=== PATIENT | female | born 1965 | race Caucasian/White ===

== ENCOUNTER 2018-02-03 18:30 | Observation (INO) ==
--- NOTE | 2018-02-03 19:30 | ED ---
HPI General Chief Complaint: Chest Pain Stated Complaint: chest pain Time Seen by Provider: 02/03/18 18:47 Source: patient Mode of arrival: ambulatory Limitations: no limitations History of Present Illness HPI narrative: Patient is a 52-year-old female presenting to the emerge department for evaluation of chest pain. Patient states started approximately 5 :30 PM this afternoon. Symptoms started with floaters in her right eye, she states that is how she knows her blood pressure is elevated. Chest pain is localized to left anterior chest wall with radiation to the left arm and left neck and jaw. She states the pain is intermittent, worse when laying flat. She reports dizziness, fatigue, mild nausea but denies any shortness of breath. Symptom onset was sudden, symptoms are moderate, patient reports that she has a history of hypertension, she is been off of lisinopril and HCTZ for 2 months due to lack of insurance benefits. She reports a family history significant for early heart disease, she states her father of his second heart attack in his 50s. Patient currently reports her pain is 7 out of 10, tight, also feels as if someone kicked her in the chest. She reports that she does have a history of anxiety and rheumatoid arthritis as well. MD complaint: Reports chest pain STEMI Alert: No Onset (ago): hour(s) (2) Duration: intermittent Onset: during rest Pain location: Reports left chest Severity: moderate Severity scale (1-10): 7 Quality: Reports aching and heaviness Pain radiation: Reports LUE, neck and jaw/teeth Relieving factors: nothing Exacerbating factors: supine Associated symptoms: Reports nausea Treatments prior to arrival chest pain: Reports none Related Data On Oral Contraceptives: No Home Medications Medication Instructions Recorded Confirmed lisinopril-hydrochlorothiazide 1 tab PO DAILY 02/03/18 Allergies Allergy/AdvReac Type Severity Reaction Status Date / Time No Known Allergies Allergy Verified 02/03/18 18:35 Review of Systems ROS: all other systems reviewed are negative [facility] Medical History Medical History Anxiety (Acute) Hypertension (Acute) Rheumatoid arthritis (Acute) Surgical History Surgical History H/O shoulder surgery (Acute) Social History Social History Substance History: No History of Abuse Second Hand Smoke Exposure: Yes Smoking Status: Current every day smoker Tobacco Type: Cigarettes How Often Do You Have a Drink Containing Alcohol: 2 to 4 times a month Recent Travel in [facility] within the Last 8 Weeks: No Recent Out of Country Travel within the Last 8 Weeks: No Immunization History Tetanus Immunization: >5 Years Exam Narrative Exam Narrative: GENERAL: Well-developed, well-nourished, alert female. Appears uncomfortable, in no acute distress. SKIN: Focused skin assessment warm/dry. HEAD: Atraumatic. Normocephalic. EYES: Pupils equal and round. No scleral icterus. No injection or drainage. ENT: No nasal bleeding or discharge. Mucous membranes pink and moist. NECK: Trachea midline. No JVD. CARDIOVASCULAR: Regular rate and rhythm. No murmur appreciated. RESPIRATORY: No accessory muscle use. Clear to auscultation. Breath sounds equal bilaterally. GASTROINTESTINAL: Abdomen soft, non-tender, nondistended. Hepatic and splenic margins not palpable. MUSCULOSKELETAL: No obvious deformities. No clubbing. No cyanosis. No edema. NEUROLOGICAL: Awake and alert. No obvious cranial nerve deficits. Motor grossly within normal limits. Normal speech. PSYCHIATRIC: Appropriate mood and affect; insight and judgment normal. Course Initial Documented Vital Signs Temperature 98.7 F 02/03/18 18:33 Pulse Rate 91 H 02/03/18 18:33 Respiratory Rate 20 02/03/18 18:33 Blood Pressure 207/114 H 02/03/18 18:33 Pulse Oximetry 99 02/03/18 18:33 Last Documented Vital Signs Temperature 98.7 F 02/03/18 18:33 Pulse Rate 67 02/03/18 19:54 Respiratory Rate 18 02/03/18 19:54 Blood Pressure 181/111 H 02/03/18 19:54 Pulse Oximetry 97 02/03/18 19:54 Medical Decision Making [facility] Narrative Medical decision making narrative: Patient is a 52-year-old female presenting for evaluation of chest pain that started abruptly at 530 is afternoon. Patient has a strong family history, she has had no previous cardiac workup. Patient is hypertensive on arrival. She will be given Nitropaste to her chest wall as well as 324 mg of aspirin. Labs and imaging ordered and pending. Initial cardiac enzymes are unremarkable. BP remained elevated after nitropaste, pt was given morphine and lisinopril. Remaining labs reviewed with no acute findings. Pt reported pain has improved after nitro and morphine. CXR with no acute disaease. Pt will be admitted to the [facility] for further workup which in light of significant family history and no previous cardiac work-up is warranted. Pt is agreeable, orders placed. Medical Screen Exam Complete: Yes Emergency Medical Condition: Yes Differential Diagnosis Differential Diagnosis: Metabolic abnormality versus anxiety versus other Lab Data Lab results reviewed: Yes I reviewed the patient's lab results. Result diagrams: 02/03/18 19:25 02/03/18 19:25 Lab Results 02/03/18 02/03/18 02/03/18 Range/Units 19:25 19:25 19:25 WBC 7.8 (4.0-11.0) th/mm3 RBC 4.73 (4.00-5.30) mil/mm3 Hgb 15.2 (11.6-15.3) gm/dL Hct 44.0 (35.0-46.0) % MCV 93.1 (80.0-100.0) fL MCH 32.2 (27.0-34.0) pg MCHC 34.6 (32.0-36.0) % RDW 12.5 (11.6-17.2) % Plt Count 241 (150-450) th/mm3 MPV 7.9 (7.0-11.0) fL Neut % (Auto) 58.7 (16.0-70.0) % Lymph % (Auto) 33.2 (9.0-44.0) % [place] % (Auto) 6.2 (0.0-8.0) % Eos % (Auto) 1.4 (0.0-4.0) % Baso % (Auto) 0.5 (0.0-2.0) % Neut # (Auto) 4.6 (1.8-7.7) th/mm3 Lymph # (Auto) 2.6 (1.0-4.8) th/mm3 [place] # (Auto) 0.5 (0.0-0.9) th/mm3 Eos # (Auto) 0.1 (0.0-0.4) th/mm3 Baso # (Auto) 0.0 (0.0-0.2) th/mm3 WBC Differential . Differential Comment Auto diff final PT 10.7 (9.8-11.6) sec INR 1.1 Ratio APTT 27.1 (23.4-31.7) sec Sodium 141 (136-145) meq/L Potassium 3.7 (3.5-5.1) meq/L Chloride 106 (98-107) meq/L Carbon Dioxide 26.3 (21.0-32.0) meq/L Anion Gap 9 (5-15) meq/L BUN 11 (7-18) mg/dL Creatinine 0.84 (0.50-1.00) mg/dL Estimated GFR 71 L (>89) mL/min Random Glucose 82 (74-106) mg/dL Calcium 8.7 (8.5-10.1) mg/dL Magnesium 2.0 (1.5-2.5) mg/dL Total Bilirubin 0.9 (0.2-1.0) mg/dL AST 18 (15-37) U/L ALT 15 (10-53) U/L Alkaline Phosphatase 43 L (45-117) U/L Total Creatine Kinase 107 (26-192) U/L CK-MB (CK-2) 1.2 (0.5-3.6) ng/mL Troponin I Less than 0.02 L (0.02-0.05) ng/mL Total Protein 7.2 (6.4-8.2) g/dL Albumin 4.0 (3.4-5.0) g/dL Lipase 122 (73-393) U/L Imaging Data Radiologist's impression: Chest X-Ray 02/03/18 18:46 CONCLUSION: 1. No acute cardiopulmonary disease. Discharge Plan Discharge Disposition Patient Disposition: ED Admit(ED Internal Use Only) Discharge Condition Condition: Stable Discharge Order Discharge Orders: ED Use Only Admit Order (Routine); Ordered 02/03/18 Ordered By: Cassie Saab Discharge Details Diagnosis: Atypical chest pain Physicians Team ED Provider: Chris Mcgrath ED Midlevel Provider: Cassie Saab Primary Care Provider: Primary Care Claritza Guzmán Attending Provider: Nicki Wilson ED Status: Admitted Observation Patient
[2018-02-03 19:31] LABS: Baso % (Auto) 0.5 % (0.0-2.0); Eos # (Auto) 0.1 th/mm3 (0.0-0.4); Eos % (Auto) 1.4 % (0.0-4.0); Hemoglobin 15.2 gm/dL (11.6-15.3); Lymph # (Auto) 2.6 th/mm3 (1.0-4.8); Lymph % (Auto) 33.2 % (9.0-44.0); Mean Corpuscular HGB Conc 34.6 % (32.0-36.0); Mean Corpuscular Hemoglobin 32.2 pg (27.0-34.0); Mean Corpuscular Volume 93.1 fL (80.0-100.0); Mean Platelet Volume 7.9 fL (7.0-11.0); Mono # (Auto) 0.5 th/mm3 (0.0-0.9); Mono % (Auto) 6.2 % (0.0-8.0); Neut # (Auto) 4.6 th/mm3 (1.8-7.7); Neut % (Auto) 58.7 % (16.0-70.0); Platelet Count 241 th/mm3 (150-450); Red Blood Count 4.73 mil/mm3 (4.00-5.30); Red Cell Distribution Width 12.5 % (11.6-17.2); White Blood Count 7.8 th/mm3 (4.0-11.0)
--- NOTE | 2018-02-03 19:31 | XR ---
EXAM DATE: 02/03/2018 7:27 PM EST AGE/SEX: 52 years / Female INDICATIONS: Mid chest pain. CLINICAL DATA: This is the patient's initial encounter. Patient reports that signs and symptoms have been present for 3 days and indicates a pain score of 7/10. MEDICAL/SURGICAL HISTORY: None. None. COMPARISON: No prior exams available for comparison. FINDINGS: A single AP view of the chest demonstrates the lungs to be symmetrically aerated without evidence of mass, infiltrate or effusion. The cardiomediastinal contours are unremarkable. Osseous structures a re intact. CONCLUSION: 1. No acute cardiopulmonary disease. Electronically signed by: Catalino Monroy MD Board Certified Radiologist 02/03/2018 7:30 PM ZIG[facility] T
[2018-02-03 19:52] LABS: Activated Partial Thrombo Time 27.1 sec (23.4-31.7); INR 1.1 Ratio; Prothrombin Time 10.7 sec (9.8-11.6)
[2018-02-03 19:58] LABS: Anion Gap 9 meq/L (5-15); Aspartate Aminotransferase 18 U/L (15-37); Blood Urea Nitrogen 11 mg/dL (7-18); Calcium 8.7 mg/dL (8.5-10.1); Carbon Dioxide 26.3 meq/L (21.0-32.0); Chloride 106 meq/L (98-107); Glomerular Filtration Rate 71 mL/min (>89); Glucose,Random 82 mg/dL (74-106); Lipase 122 U/L (73-393); Potassium 3.7 meq/L (3.5-5.1); Sodium 141 meq/L (136-145)
[2018-02-03 20:03] LABS: Alanine Aminotransferase 15 U/L (10-53); Alkaline Phosphatase 43 U/L (45-117); Creatine Kinase 107 U/L (26-192); Total Protein 7.2 g/dL (6.4-8.2)
[2018-02-03] MEDS ORDERED: Lisinopril 20 MG Tablet PO ONE (20:07)
[2018-02-03] MEDS ORDERED: Morphine Sulfate Inj 2 MG/ML Vial IV.PUSH ONE ×2 (20:07→21:17)
[2018-02-03 20:16] LABS: Creatine Kinase MB 1.2 ng/mL (0.5-3.6)
[2018-02-03] MEDS ORDERED: Morphine Inj 4 MG/ML Vial IV.PUSH PRN (21:18)
[2018-02-03] MEDS ORDERED: Acetaminophen 500 MG Tablet PO PRN (21:18)
[2018-02-03] MEDS ORDERED: ALPRAZolam 0.25 MG Tablet PO PRN (21:18)
[2018-02-03 22:20] LABS: Bilirubin,Urine Negative (Negative); Clarity,Urine Hazy (Clear); Color,Urine Yellow (Yellw/Straw); Glucose,Urine (UA) Negative (Negative); Hyaline Casts,Urine 1 /lpf (0-3); Leukocyte Esterase,Urine Negative (Negative); Mucus,Urine Many /lpf (Occasional); Nitrite,Urine Negative (Negative); Specific Gravity,Urine 1.016 (1.002-1.035); Squamous Epithelial Cell,Urine 1 /hpf (0-5)
[2018-02-03 22:28] LABS: Amphetamine Screen,Urine Neg (Neg); Barbiturate Screen,Urine Neg (Neg); Cannabinoid Screen,Urine Neg (Neg); Cocaine Screen,Urine Neg (Neg); Opiate Screen,Urine Pos (Neg)
[2018-02-03 23:01] LABS: Creatine Kinase 84 U/L (26-192)
[2018-02-04] MEDS ORDERED: Enoxaparin Inj 40 MG/0.4 ML Syringe SQ ONE (01:15)
[2018-02-04 02:13] LABS: Creatine Kinase 83 U/L (26-192)
--- NOTE | 2018-02-04 08:48 | P.HPCA ---
History of Present Illness Primary Care Physician: No Primary Care Physician Chief Complaint: Chest pain History of Present Illness: 52-year-old female with history of rheumatoid arthritis, hypertension (not current on medication), and current smoker presents to the emergency room for further evaluation of nonexertional chest pain. Onset 5:30 PM. Location left anterior chest. Characterized as stabbing. Moderate in severity. Radiation to left-sided neck and left arm. Duration intermittent waves generally lasting 5 minutes returning within 30 minutes before returning again. These episodes have occurred all evening. Associated symptoms initially included nausea. Denied vomiting, dyspnea, pain on inspiration, or diaphoresis. No precipitating factors. However endorses current situational stress. Reports medications given in ER eased discomfort and frequency through evening. No recent illness, fever, chills,, or injury. Denies similar pain in the past. 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 Endorses extreme amount of stress from unplanned relocation in November , resulting in financial difficultly. Frequently tearful during interview. Past cardiac testing None Social history Known hypertension, unfortunately has been out of her medications for 2 months. Previously taking lisinopril/hydrochlorothiazide. No known diabetes or hyperlipidemia. Current 1/2 pack day smoker, did not start using tobacco until age 47. . Endorses active lifestyle. Primary care provider 2-year-old grandson. Family history Positive early onset cardiovascular disease. Father first DE age 47, age 52 [place]. - Diagnosis (1) Atypical chest pain (2) Hypertension (3) Tobacco use Review of Systems All other systems reviewed negative except as stated in HPI [facility] - History History Provided By: Patient - Medical History Medical History: Medical History (Last Reviewed 02/04/18 @ 15:21 by IVONNE Holbrook) Anxiety Hypertension Rheumatoid arthritis - Surgical History Surgical History: Surgical History (Last Updated 02/04/18 @ 08:43 by IVONNE Holbrook) H/O cervical spine surgery H/O shoulder surgery Hx of tonsillectomy - Tobacco History Second Hand Smoke Exposure: Yes Tobacco Use In Past 30 Days: Yes Smoking Status: Current every day smoker (began smoking age 47) Tobacco Type: Cigarettes Packs Per Day: 0.5 - Alcohol History How Often Do You Have a Drink Containing Alcohol: 2 to 4 times a month - Substance Use History Substance History: No History of Abuse - Travel History Recent Travel in the [place] Within the Last 8 Weeks: No Recent Travel Out of the Country Within the Last 8 Weeks: No - Immunization History Tetanus Immunization: >5 Years Medications and Allergies Active Medications: Active Medications Acetaminophen (Tylenol) 500 mg PO Q4H PRN PRN Reason: HEADACHE Alprazolam (Xanax) 0.25 mg PO Q8H PRN PRN Reason: ANXIETY Lisinopril (Prinivil) 10 mg PO DAILY [facility] Morphine Sulfate (Morphine Inj) 2 mg IV.PUSH Q4H PRN PRN Reason: PAIN SCALE 8 TO 10 Nitroglycerin (Nitro-Bid 2% Oint) 1 inch TOPICAL Q6HR LAZARO Last Admin: 02/04/18 05:16 Dose: 1 inch Ondansetron HCl (Zofran Inj) 4 mg IV.PUSH Q6H PRN PRN Reason: NAUSEA Sodium Chloride (Ns Flush) 2 ml IV.FLUSH UNSCH PRN PRN Reason: FLUSH AFTER USING IV ACCESS Sodium Chloride (Ns Flush) 2 ml IV.FLUSH BID LAZARO Sodium Chloride (Ns Flush) 2 ml IV.FLUSH PRN PRN PRN Reason: FLUSH AFTER USING IV ACCESS Allergies Allergy/AdvReac Type Severity Reaction Status Date / Time No Known Allergies Allergy Verified 02/03/18 18:35 Exam Vital signs: Vital Signs 02/03/18 18:33 02/03/18 18:58 02/03/18 19:00 Temperature 98.7 F Pulse Rate 91 H 74 65 Respiratory Rate 20 18 Blood Pressure 207/114 H 202/105 H 177/104 H Pulse Oximetry 99 99 98 02/03/18 19:51 02/03/18 19:54 02/03/18 21:30 Temperature Pulse Rate 65 67 67 Respiratory Rate 18 18 Blood Pressure 181/111 H 159/97 H Pulse Oximetry 97 97 99 02/03/18 23:43 02/04/18 00:00 02/04/18 04:00 Temperature 97.8 F Pulse Rate 60 58 L Respiratory Rate 17 16 Blood Pressure 136/79 Pulse Oximetry 95 02/04/18 05:12 02/04/18 07:42 Temperature 97.5 F L 97.8 F Pulse Rate 60 68 Respiratory Rate 17 16 Blood Pressure 119/64 115/72 Pulse Oximetry 94 L 95 Intake & Output 02/03/18 02/04/18 02/04/18 18:59 06:59 18:59 Weight 56.699 kg Other: # Voids 2 Narrative: GENERAL: Alert WN, WD, NAD, pleasant, female HEAD: NC, AT EYES: Sclera clear, conjunctiva injected ENT: Mucous membranes pink and moist NECK: Supple, no masses, trachea midline CV: Regular bradycardic rhythm, soft systolic murmur. Left anterior chest discomfort reproduced with palpation. RESP: Clear lungs throughout bilateral, no crackles, wheeze, rhonchi, symmetrical chest rise, nonlabored, able to speak in full sentences ABD: Soft, NT, ND, no masses, positive bowel tones BACK: No scoliosis EXT: Pulses +2x4, no dependent edema MS: Normal tone x4 extremities, nontender, no obvious deformities, full range of motion NEURO: Motor strength 5/5, gait WNL PSYCH: A+O x3, pleasant affect, appropriate speech, depressed mood, tearful, appropriate insight and judgment SKIN: Normal turgor, normal texture, no lesions, no rashes, brisk cap refill, even hair distribution Results 02/03/18 19:25 02/03/18 19:25 Cardiac Enzymes 02/03/18 02/03/18 02/04/18 Range/Units 19:25 21:55 01:30 AST 18 (15-37) U/L CK-MB (CK-2) 1.2 (0.5-3.6) ng/mL Troponin I Less than 0.02 L Less than 0.02 L Less than 0.02 L (0.02-0.05) ng/mL Coagulation 02/03/18 Range/Units 19:25 PT 10.7 (9.8-11.6) sec APTT 27.1 (23.4-31.7) sec CBC 02/03/18 Range/Units 19:25 WBC 7.8 (4.0-11.0) th/mm3 RBC 4.73 (4.00-5.30) mil/mm3 Hgb 15.2 (11.6-15.3) gm/dL Hct 44.0 (35.0-46.0) % Plt Count 241 (150-450) th/mm3 Neut # (Auto) 4.6 (1.8-7.7) th/mm3 Lymph # (Auto) 2.6 (1.0-4.8) th/mm3 [place] # (Auto) 0.5 (0.0-0.9) th/mm3 Eos # (Auto) 0.1 (0.0-0.4) th/mm3 Baso # (Auto) 0.0 (0.0-0.2) th/mm3 Comprehensive Metabolic Panel 02/03/18 Range/Units 19:25 Sodium 141 (136-145) meq/L Potassium 3.7 (3.5-5.1) meq/L Chloride 106 (98-107) meq/L Carbon Dioxide 26.3 (21.0-32.0) meq/L BUN 11 (7-18) mg/dL Creatinine 0.84 (0.50-1.00) mg/dL Calcium 8.7 (8.5-10.1) mg/dL AST 18 (15-37) U/L ALT 15 (10-53) U/L Alkaline Phosphatase 43 L (45-117) U/L Total Protein 7.2 (6.4-8.2) g/dL Albumin 4.0 (3.4-5.0) g/dL Intake and Output 02/03/18 02/04/18 02/04/18 22:59 06:59 14:59 Other: # Voids 2 Weight 56.699 kg - Imaging and Cardiology Imaging: Impressions Chest X-Ray 02/03/18 18:46 CONCLUSION: 1. No acute cardiopulmonary disease. EKG interpretations - Dysrhythmias Sinus rhythms and dysrhythmias: sinus bradycardia (< 50 bpm) (Normal axis, no ST -T segment change) Caprini VTE Risk Assessment Caprini VTE Risk Assessment: No/Low Risk (score <= 1) Caprini Risk Assessment Model: Point Value = 1 Point Value = 2 Point Value = 3 Point Value = 5 Age 41-60 Minor surgery BMI > 25 kg/m2 Swollen legs Varicose veins or History of unexplained or recurrent spontaneous Oral contraceptives or hormone replacement Sepsis (< 1 month) Serious lung disease, including pneumonia (< 1 month) Abnormal pulmonary function Acute myocardial infarction Congestive heart failure (< 1 month) History of inflammatory bowel disease Medical patient at bed rest Age 61-74 Arthroscopic surgery Major open surgery (> 45 min) Laparoscopic surgery (> 45 min) Malignancy Confined to bed (> 72 hours) Immobilizing plaster cast Central venous access Age >= 75 History of VTE Family history of VTE Factor V Leiden Prothrombin [id number] Lupus anticoagulant Anticardiolipin antibodies Elevated serum homocysteine Heparin-induced thrombocytopenia Other congenital or acquired thrombophilia Stroke (< 1 month) Elective arthroplasty Hip, pelvis, or leg fracture Acute spinal cord injury (< 1 month) Prophylaxis Regimen: Total Risk Factor Score Risk Level Prophylaxis Regimen 0-1 Low Early ambulation 2 Moderate Order ONE of the following: *Sequential Compression Device (SCD) *Heparin 5000 units SQ BID 3-4 Higher Order ONE of the following medications: *Heparin 5000 units SQ TID *Enoxaparin/Lovenox 40 mg SQ daily (WT < 150 kg, CrCl > 30 mL/min) *Enoxaparin/Lovenox 30 mg SQ daily (WT < 150 kg, CrCl > 10-29 mL/min) *Enoxaparin/Lovenox 30 mg SQ BID (WT < 150 kg, CrCl > 30 mL/min) AND/OR *Sequential Compression Device (SCD) 5 or more Highest Order ONE of the following medications: *Heparin 5000 units SQ TID (Preferred with Epidurals) *Enoxaparin/Lovenox 40 mg SQ daily (WT < 150 kg, CrCl > 30 mL/min) *Enoxaparin/Lovenox 30 mg SQ daily (WT < 150 kg, CrCl > 10-29 mL/min) *Enoxaparin/Lovenox 30 mg SQ BID (WT < 150 kg, CrCl > 30 mL/min) AND *Sequential Compression Device (SCD) Assessment and Plan - Assessment (1) Atypical chest pain Code(s): R07.89 - Other chest pain Status: Acute Plan: Admitted to chest pain center. Monitor on telemetry overnight. ACS ruled out with 3 sets of EKGs and cardiac enzymes. Will be seen and evaluated by Dr. Perez. Discussed possible exercise stress test later this further disposition to follow her evaluation by avionics systems technician. (2) Hypertension Code(s): I10 - Essential (primary) hypertension Status: Chronic Plan: Lisinopril 20 mg daily. Continue to monitor. Discussed importance of tobacco cessation and adhering to a low-sodium diet. Will provide prescription refill upon discharge. Names and contact information will be placed in patients discharge packet. (3) Tobacco use Code(s): Z72.0 - Tobacco use Status: Chronic Plan: Strongly encouraged and stressed importance of tobacco cessation. Instructed to quit smoking. H&P: Quality - VTE Deep Vein Thrombosis/Pulmonary Embolism Present on Admission: No (2) Hypertension Qualifiers: Hypertension type: unspecified Qualified Code(s): I10 - Essential (primary) hypertension
[2018-02-04] MEDS ORDERED: Lisinopril 10 MG Tablet PO SCH (09:00)
--- NOTE | 2018-02-04 12:51 | P.PNCA ---
Subjective Interval history: 52-year-old lady admitted to the chest pain center with complaints of chest pain. She was evaluated by the nurse practitioner, presented, and then seen and examined personally. Documentation is recorded by the nurse practitioner is appropriate and accurate. In essence this patient is under a great deal of emotional stress and has had some recurring episodes of very atypical chest pain. Her emotional situation is precipitated by the fact that she gave up her job to come to this area to help take care of her small grandson because her daughter and son-in-law are not coping with caring for the child. Both use marijuana regularly. The daughter works but that has been does not. She stays because she is so concerned about the grandchild but is very frustrated by her children. Her ex- also lives in the same house and is apparently loud and rude. She is ruled out using ACS protocol but will need to be evaluated by a stress test prior to her discharge. She is also not been treating her hypertension and will be instructed in regard to the need of establishing with a physician for ongoing outpatient care. Medications and Allergies Active Medications: Active Medications Acetaminophen (Tylenol) 500 mg PO Q4H PRN PRN Reason: HEADACHE Alprazolam (Xanax) 0.25 mg PO Q8H PRN PRN Reason: ANXIETY Lisinopril (Prinivil) 10 mg PO DAILY [facility] Last Admin: 02/04/18 08:53 Dose: 10 mg Morphine Sulfate (Morphine Inj) 2 mg IV.PUSH Q4H PRN PRN Reason: PAIN SCALE 8 TO 10 Ondansetron HCl (Zofran Inj) 4 mg IV.PUSH Q6H PRN PRN Reason: NAUSEA Sodium Chloride (Ns Flush) 2 ml IV.FLUSH UNSCH PRN PRN Reason: FLUSH AFTER USING IV ACCESS Sodium Chloride (Ns Flush) 2 ml IV.FLUSH BID [facility] Last Admin: 02/04/18 08:53 Dose: 2 ml Sodium Chloride (Ns Flush) 2 ml IV.FLUSH PRN PRN PRN Reason: FLUSH AFTER USING IV ACCESS Allergies Allergy/AdvReac Type Severity Reaction Status Date / Time No Known Allergies Allergy Verified 02/03/18 18:35 Home Medications Medication Instructions Recorded Confirmed Type lisinopril-hydrochlorothiazide 1 tab PO DAILY 02/03/18 History Physical Exam Vital signs: Vital Signs 02/03/18 18:33 02/03/18 18:58 02/03/18 19:00 Temperature 98.7 F Pulse Rate 91 H 74 65 Respiratory Rate 20 18 Blood Pressure 207/114 H 202/105 H 177/104 H Pulse Oximetry 99 99 98 02/03/18 19:51 02/03/18 19:54 02/03/18 21:30 Temperature Pulse Rate 65 67 67 Respiratory Rate 18 18 Blood Pressure 181/111 H 159/97 H Pulse Oximetry 97 97 99 02/03/18 23:43 02/04/18 00:00 02/04/18 04:00 Temperature 97.8 F Pulse Rate 60 58 L Respiratory Rate 17 16 Blood Pressure 136/79 Pulse Oximetry 95 02/04/18 05:12 02/04/18 07:42 02/04/18 08:00 Temperature 97.5 F L 97.8 F Pulse Rate 60 68 56 L Respiratory Rate 17 16 Blood Pressure 119/64 115/72 Pulse Oximetry 94 L 95 95 02/04/18 12:00 Temperature 98.0 F Pulse Rate 67 Respiratory Rate 16 Blood Pressure 127/78 Pulse Oximetry 94 L Intake & Output 02/03/18 02/04/18 02/04/18 18:59 06:59 18:59 Weight 56.699 kg Other: # Voids 2 Narrative: Well-nourished well-developed woman in no acute distress but who became quite tearful explaining the stressful home situation she is in. Skin warm and dry, heavily freckled, several tattoos. HEENT is recorded Neck supple no JVD masses nodes or bruits Chest diminished breath sounds but no rales wheezes or rhonchi Cardiovascular PMI is not displaced there is a regular sinus rhythm no gallops rubs or murmurs Abdomen soft nontender no guarding or rebound Extremities no clubbing cyanosis or edema Results 02/03/18 19:25 02/03/18 19:25 Cardiac Enzymes 02/03/18 02/03/18 02/04/18 Range/Units 19:25 21:55 01:30 AST 18 (15-37) U/L CK-MB (CK-2) 1.2 (0.5-3.6) ng/mL Troponin I Less than 0.02 L Less than 0.02 L Less than 0.02 L (0.02-0.05) ng/mL Coagulation 02/03/18 Range/Units 19:25 PT 10.7 (9.8-11.6) sec APTT 27.1 (23.4-31.7) sec CBC 02/03/18 Range/Units 19:25 WBC 7.8 (4.0-11.0) th/mm3 RBC 4.73 (4.00-5.30) mil/mm3 Hgb 15.2 (11.6-15.3) gm/dL Hct 44.0 (35.0-46.0) % Plt Count 241 (150-450) th/mm3 Neut # (Auto) 4.6 (1.8-7.7) th/mm3 Lymph # (Auto) 2.6 (1.0-4.8) th/mm3 [place] # (Auto) 0.5 (0.0-0.9) th/mm3 Eos # (Auto) 0.1 (0.0-0.4) th/mm3 Baso # (Auto) 0.0 (0.0-0.2) th/mm3 Comprehensive Metabolic Panel 02/03/18 Range/Units 19:25 Sodium 141 (136-145) meq/L Potassium 3.7 (3.5-5.1) meq/L Chloride 106 (98-107) meq/L Carbon Dioxide 26.3 (21.0-32.0) meq/L BUN 11 (7-18) mg/dL Creatinine 0.84 (0.50-1.00) mg/dL Calcium 8.7 (8.5-10.1) mg/dL AST 18 (15-37) U/L ALT 15 (10-53) U/L Alkaline Phosphatase 43 L (45-117) U/L Total Protein 7.2 (6.4-8.2) g/dL Albumin 4.0 (3.4-5.0) g/dL Intake and Output 02/03/18 02/04/18 02/04/18 22:59 06:59 14:59 Other: # Voids 2 Weight 56.699 kg - Imaging and Cardiology Imaging: Impressions Chest X-Ray 02/03/18 18:46 CONCLUSION: 1. No acute cardiopulmonary disease. Assessment and Plan - Assessment (1) Atypical chest pain Code(s): R07.89 - Other chest pain Status: Acute Plan: Admitted to chest pain center. Monitor on telemetry overnight. ACS ruled out with 3 sets of EKGs and cardiac enzymes. Will be seen and evaluated by Dr. Perez. Discussed possible exercise stress test later this further disposition to follow. This patient's care and evaluation were discussed at length and since she is ruled out with standard chest pain protocol further testing with exercise stress test is recommended at this time. If she is negative she can be discharged further follow-up on an outpatient basis. (2) Hypertension Code(s): I10 - Essential (primary) hypertension Status: Chronic Plan: Lisinopril 20 mg daily. Continue to monitor. Discussed importance of tobacco cessation and adhering to a low-sodium diet. Above comments are made per my recommendation (3) Tobacco use Code(s): Z72.0 - Tobacco use Status: Chronic Plan: Strongly encouraged and stressed importance of tobacco cessation. Instructed to quit smoking. (2) Hypertension Qualifiers: Hypertension type: unspecified Qualified Code(s): I10 - Essential (primary) hypertension
--- NOTE | 2018-02-04 14:12 | ECG ---
Date Performed: 02/04/2018 Time Performed: 01:42:49 PTAGE: 52 years EKG: SINUS BRADYCARDIA BORDERLINE ECG NO PREVIOUS TRACING DOCTOR: Cheko Perez Interpretating Date/Time 02/04/2018 14:11:04
--- NOTE | 2018-02-04 14:15 | ECG ---
Date Performed: 02/03/2018 Time Performed: 22:18:48 PTAGE: 52 years EKG: Sinus rhythm NORMAL ECG PREVIOUS TRACING : 02/03/2018 18.47 DOCTOR: Cheko Perez Interpretating Date/Time 02/04/2018 14:13:51
--- NOTE | 2018-02-04 14:17 | ECG ---
Date Performed: 02/03/2018 Time Performed: 18:47:59 PTAGE: 52 years EKG: Sinus rhythm NORMAL ECG NO PREVIOUS TRACING DOCTOR: Cheko Perez Interpretating Date/Time 02/04/2018 14:16:01
--- NOTE | 2018-02-04 14:24 | TR ---
Date Performed: 02/04/2018 Time Performed: 13:29:12 DOCTOR: Cheko Perez DRUG LIST: CLINICAL HISTORY: REASON FOR TEST: Right pleural effusion REASON FOR ENDING: OBSERVATION: CONCLUSION: Modified marley protocol completed. Modified in stage 2, speed 2 MPH and grade of 16% due to inability to walk any faster. Testing stopped sec to reaching target heart rate and leg fatig ue. Maximum KG=078 Target HR Achieved=86% Maximum WX=294/80 Total Exercise Time=6:01. No reprod mali st discomfort. Normal bp response. Fair exercise tolerance. Upsloping st segments during peak exercis e. Recovery quick and unremarkable. COMMENTS:
== END 2018-02-04 15:45 | disposition home or self-care (01) ==
LOC: NEPE 18:30 → NEDA 18:30 → NEPHCDU 23:02
PROVIDERS: ADMIT Internal Medicine Interventional Cardiology; ATTEND Internal Medicine Interventional Cardiology
CPT/HCPCS: 71010; 71045; 80053; 80307; 81001; 82550; 82552; 83690; 83735; 84484; 85025; 85610; 85730; 90774; 90775; 90784; 93005; 93017; 96374; 96375; 96376; 99285; C8952; G0378; J1650; J2270; J2405